=== PATIENT | male | born 1985 | race Caucasian/White ===

== ENCOUNTER 2018-05-21 20:55 | Emergency (ER) | payer MEDICAID ==
[~2018-05-21] VITALS: Ht 170.2 cm; Wt 71.2 kg
[2018-05-21 21:22] VITALS: Ht 170.2 cm; Wt 71.2 kg
[2018-05-21 21:43] LABS: BASOPHIL % 0.5 % (0-2); PLATELET COUNT 304 x10^3mcL (130-400); RED CELL DISTRIBUTION WIDTH 13.5 % (11.5-14.5)
[2018-05-21 22:02] LABS: ALBUMIN 3.6 g/dL (3.4-5.0); ALT/SGPT 52 U/L (16-63); CALCIUM 8.6 mg/dL (8.5-10.1); CARBON DIOXIDE 30.3 mmol/L (21-32); CHLORIDE SERUM 95 mmol/L (98-107); CREATININE SERUM 0.9 mg/dL (0.7-1.3); GFR1 > 60 mL/min; SODIUM SERUM 132 mmol/L (136-145)
[2018-05-21 22:18] LABS: ALKALINE PHOSPHATASE 142 U/L (46-116); AST/SGOT 34 U/L (15-37); BILIRUBIN TOTAL 0.76 mg/dL (0.20-1.00); TOTAL PROTEIN, SERUM 6.8 g/dL (6.4-8.2)
[2018-05-21 22:24] LABS: GLUCOSE SERUM 485 mg/dL (74-106)
[2018-05-21 23:13] LABS: AMPHETAMINE QUAL UR POSITIVE (See below)
[2018-05-22 05:33] VITALS: BP 121/82
== END 2018-05-22 05:33 | disposition short-term general hospital (02) ==
LOC: ED 20:55
PROVIDERS: Emergency Medicine
DX: E10.65 Type 1 diabetes mellitus with hyperglycemia (principal); R45.851 Suicidal ideations; F20.9 Schizophrenia, unspecified
CPT/HCPCS: 82962; G0480; J1815; J7030

== ENCOUNTER 2018-09-25 21:42 | Emergency (ER) | payer OTHER ==
[~2018-09-25] VITALS: Ht 170.2 cm; Wt 71.2 kg
[2018-09-25 21:55] VITALS: Ht 170.2 cm; Wt 71.2 kg
[2018-09-25 22:18] LABS: BASOPHIL % 0.6 % (0-2); PLATELET COUNT 285 x10^3mcL (130-400)
[2018-09-25 22:34] LABS: AMPHETAMINE QUAL UR NONE DETECTED (See below)
[2018-09-25 22:39] LABS: ALBUMIN 3.5 g/dL (3.4-5.0); ALKALINE PHOSPHATASE 162 U/L (46-116); ALT/SGPT 49 U/L (16-63); AST/SGOT 29 U/L (15-37); BILIRUBIN TOTAL 0.4 mg/dL (0.20-1.00); CALCIUM 8.5 mg/dL (8.5-10.1); CARBON DIOXIDE 24.9 mmol/L (21-32); CHLORIDE SERUM 94 mmol/L (98-107); GFR1 > 60 mL/min; LIPASE 115 IU/L (73-393); POTASSIUM SERUM 4.3 mmol/L (3.5-5.1); SODIUM SERUM 131 mmol/L (136-145); TOTAL PROTEIN, SERUM 6.9 g/dL (6.4-8.2)
[2018-09-25 22:48] LABS: GLUCOSE SERUM 573 mg/dL (74-106)
[2018-09-26 03:31] VITALS: BP 101/57
== END 2018-09-26 03:31 | disposition home or self-care (01) ==
LOC: ED 21:42
PROVIDERS: Emergency Medicine
DX: E11.65 Type 2 diabetes mellitus with hyperglycemia (principal); R53.81 Other malaise; E11.9 Type 2 diabetes mellitus without complications
CPT/HCPCS: 82962; J1815; J2765; J7120; Q0162

== ENCOUNTER 2018-10-25 13:47 | Inpatient (IN) | payer OTHER ==
[~2018-10-25] VITALS: Ht 170.2 cm; Wt 71.2 kg
[2018-10-25 13:51] VITALS: Ht 170.2 cm; Wt 71.2 kg
--- NOTE | 2018-10-25 14:05 | NUR ---
PT ASKING TO GO TO [facility]. PT REMINDED HE IS AWAITING MD EVALUATION.
--- NOTE | 2018-10-25 14:34 | NUR ---
PT BROUGHT IN BY [facility] FOR HEARING VOICE. PT WAS PICKED UP IN [facility] AND BROUGHT TO ED. UPON ARRIVAL TO ED PT. HAS STATED MULTIPLE TIMES THAT HE WANTS TO GO TO [facility]. HE STATES THAT THE VOICES ARE TELLING HIM TO RUN INTO TRAFFIC. DENIES THAT THE VOICES ARE TELLING HIM TO HARM OTHERS. PT IS AWAKE AND ALERT. ORIENTED TO SELF AND PLACE. PT PLACED ON CM. MSE COMPLETED BY DR. MARCANO. CURTAINS OPEN FOR PT. SAFETY. SIDERAILS UP X2. PT CURRENTLY CALM AND COOPERATIVE.
[2018-10-25 14:40] LABS: microscopic required? NO
[2018-10-25 14:59] LABS: BASOPHIL % 0.5 % (0-2); PLATELET COUNT 353 x10^3mcL (130-400); RED CELL DISTRIBUTION WIDTH 13.5 % (11.5-14.5)
--- NOTE | 2018-10-25 15:00 | NUR ---
PT GIVEN SANWICH, DIET SPRITE AND CRACKERS. OK BY .
[2018-10-25 15:12] LABS: urine erythrocyte NEGATIVE (NEGATIVE)
[2018-10-25 15:21] LABS: AMPHETAMINE QUAL UR POSITIVE (See below)
[2018-10-25 15:22] LABS: CALCIUM 8.2 mg/dL (8.5-10.1); CARBON DIOXIDE 24.8 mmol/L (21-32); CHLORIDE SERUM 97 mmol/L (98-107); CHOLESTEROL 176 mg/dL (<200); CREATININE SERUM 0.8 mg/dL (0.7-1.3); GFR1 > 60 mL/min; GLUCOSE SERUM 283 mg/dL (74-106); LIPASE 60 IU/L (73-393); SODIUM SERUM 136 mmol/L (136-145)
[2018-10-25 15:23] LABS: HDL CHOLESTEROL 68 mg/dL (40-60)
--- NOTE | 2018-10-25 15:25 | NUR ---
PT CURRENTLY LAYING IN POSITION OF COMFORT. EYES CLOSED. NO DISTRESS.
[2018-10-25 15:27] LABS: ALBUMIN 3.7 g/dL (3.4-5.0); ALKALINE PHOSPHATASE 111 U/L (46-116); ALT/SGPT 49 U/L (16-63); AST/SGOT 101 U/L (15-37); BILIRUBIN TOTAL 1.15 mg/dL (0.20-1.00); TOTAL PROTEIN, SERUM 7.2 g/dL (6.4-8.2)
--- NOTE | 2018-10-25 16:09 | NUR ---
PT SLEEPING. BREATHING EVEN UNLABORED. NO DISTRESS. REMAINS ON CM. CONTINUE TO MONITOR.
--- NOTE | 2018-10-25 16:58 | NUR ---
REPORT GIVEN TO LYDIA
--- NOTE | 2018-10-25 17:18 | NUR ---
PT VOMITED APROX 1L OF STOMACH CONTENTS. PT MEDICATED PER PRN ORDER WITH ZOFRAN 4MG IVP.
[2018-10-25 17:53] VITALS: BP 107/61
--- NOTE | 2018-10-25 17:56 | NUR ---
RECEIVED PT FROM ED VIA KRYSTIAN. ORIETNED PT TO ROOM AND SURROUNDINGS. IV NOTED TO RAC PATENT AND INTACT. INSTRUCTED PT ON THE USE OF CALL LIGHT FOR ASSISTANCE. ENDORSED PT TO PRIMARY NURSE LYDIA
--- NOTE | 2018-10-25 18:56 | NUR ---
NO ACUTE CHANGES AT THIS TIME. WILL ENDORSE TO INCOMING RN.
--- NOTE | 2018-10-25 19:20 | NUR ---
RECIEVED PATIENT AT START OF SHIFT RESTING IN BED, EYES CLOSED, BREATHS REGULAR AND EVEN ON RA. AROUSABLE WITH VERBAL STIMULATION. STATES HE DOESNT HEAR VOICES AT THIS TIME. NO THOUGHTS OF SELF HARM. MED-SURG. IV TO RAC INFUSING WITHOUT ERYTHEMA OR INFILTRATION. SITTER AT BEDSIDE. SUICIDE PRECAUTIONS IN PLACE. BED LOCKED AND IN LOWEST POSIITON. CALL LIGHT AND BEDSIDE TABLE WITHIN REACH.
[2018-10-25 20:00] VITALS: BP 133/84
--- NOTE | 2018-10-25 21:15 | NUR ---
PATIENT IS REPROTING THAT HE CAN HEAR THE VOICES AGAIN, THEY ARE CALLING HIS NAME. HE DENIES THOUGHTS OF SELF HARM. HE REPORTS 5/10 BACK PAIN. MEDICATED WITH TYLENOL PER EMAR.
--- NOTE | 2018-10-26 00:20 | NUR ---
PATIENTS EYES ARE CLOSED, BREATHS EVEN AND REGULAR. NO DISTRESS. IV INFUSING WITHOUT COMPLICATION. SITTER AT BEDSIDE. CALL LIGHT AND BEDSIDE TABLE WITHIN REACH.
[2018-10-26 05:31] VITALS: BP 110/62
--- NOTE | 2018-10-26 06:11 | NUR ---
PATIENT IS AWAKE. HE STATES HE IS STILL HEARING THE VOICES IN HIS HEAD. HE DENIES THOUGHTS OF SELF HARM STILL. SITTER STILL AT BEDSIDE. IV INFUSING WITHOUT ERYTHEMA OR INFILTRATION. BED LOCKED AND IN LOWEST POSITION. CALL LIGHT AND BEDSIDE TABLE WITHIN REACH. WILL ENDORSE CARE TO DAYSHIFT NURSE.
[2018-10-26 06:18] LABS: BASOPHIL % 0.5 % (0-2); PLATELET COUNT 266 x10^3mcL (130-400); RED CELL DISTRIBUTION WIDTH 13.4 % (11.5-14.5)
[2018-10-26 06:20] LABS: CALCIUM 7.7 mg/dL (8.5-10.1); CHLORIDE SERUM 107 mmol/L (98-107); CREATININE SERUM 0.5 mg/dL (0.7-1.3); GFR1 > 60 mL/min; GLUCOSE SERUM 221 mg/dL (74-106); MAGNESIUM 1.8 mg/dL (1.8-2.4); PHOSPHOROUS 3.6 mg/dL (2.5-4.9); POTASSIUM SERUM 3.6 mmol/L (3.5-5.1); SODIUM SERUM 142 mmol/L (136-145)
[2018-10-26 07:30] VITALS: BP 93/62
--- NOTE | 2018-10-26 08:00 | NUR ---
PATIENT RECEIVED SLEEPING BUT ARROUSABLE. SEEMS A LITTLE ANXIOUS BUT DENIES ANY PAIN AT THIS TIME. HE STILL IS HEARING VOICES AND THIS IS A CONTINUED ISSUES. THE VOICES ARE NOT TELLING HIM TO KILL HIMSELF AT THIS TIME. LUNGS ARE CLEAR AND BOWEL SOUND ACTIVE. PATIENT HAS PULSES PALPABLE TO ALL EXTREMITIES. ASKING FOR FOOD BUT THERE IS MINIMAL TO GIVE AND HE HIS DIABETIC WITH AN AIC OF 10.8. SINCE HE IS HERE FOR OOC DIABETES THIS IS AN ISSUE OF GIVING FOODS BETWEEN MEALS. PATIENT GIVEN HIS LANTUS ORDERED AND HIS REGULAR MEDICATIONS. HE HAS VITALS ATT HIS TIME AT 97.5, 74, 16, 93/62, 98% ON ROOM AIR. BP IS LOW BUT PATIENT IS ASYMPTOMATIC AT THIS TIME. NOTED PATIENT HAS HISTORY OF SCHIZOPHRENIA AND BIPOLAR DISORDER AND HAS TESTED ON THIS ADMIT POSITIVE FOR METHAMPHETAMINE. PATIENT HAS A SITTER AT BEDSIDE AND MONITORING FOR ANY SUICIDAL IDEATION OR HEARING OF VOICES TELLING HIM TO HARM HIMSELF. PLAN OF CARE OT SEND TO A PSYCH FACILITY WHEN STABLE. WILL CONTINUE TO MONITOR.
--- NOTE | 2018-10-26 11:05 | NUR ---
REQUESTING MORE FOOD AGAIN AND REMINDED ABOUT HIS AIC AND THE HIGH BLOOD SUGAR HE HAS BEEN HAVING. HE NEEDS TO BE STABLE TO [facility] TO HELP HIM WITH HIS [facility] PROBLEMS. WILL CONTINUE TO MONITOR.
--- NOTE | 2018-10-26 14:38 | NUR ---
PATIENT REMINDED ABOU HIS [facility] DIET AND THE NEED TO FOLLOW THE GUIDELINES FO RBETTER CONTROL OF THE PATIENT GLUCOSE. PATIENT IS REQUESTING FREQUENTLY. WILL REMIND ABOUT THE INDICATIONS AND CONSEQUENCES OF NOT FOLLOWING THE [facility] DIET GUIDELINES.
--- NOTE | 2018-10-26 15:30 | NUR ---
SEEN BY THE PSYCH DOCTOR EARLIER AND PLAN IS FOR TRANSFER TO PSYCH FACILITY WHEN CAN BE ARRANGED AND IS MEDICALLY STABLE TO DO SO. PATIENT STILL HEARS VOICES IN HIS HEAD. HE HAS NOT INDICATED TO THIS STAFF THEY ARE TELLING HIM TO DO HARM TO HIMSELF.
[2018-10-26 17:59] VITALS: BP 115/76
--- NOTE | 2018-10-26 18:28 | NUR ---
WILLOW HAD BLOOD SUGAR AT 244 AND GAVE 6 UNITS OF REGULAR. CONTINUED TO REQUEST FOOD ALMOST CONSTANTLY AND REMINDED OF HIS BLOOD SUGAR LEVELS. WILL CONTINUE TO MONTIOR INDICATED.
--- NOTE | 2018-10-26 19:35 | NUR ---
RECEIVED PT RESTING IN BED, SITTER AT BEDSIDE. PT ON 5150 HOLD FOR THOUGHTS TO HURT SELF (DANGER TO SELF), PT DENIES THOUGHTS TO HURT SELF AT THIS TIME. PT DOES REPORT INTERMITTENT VOICES, DENIES THEM AT THIS CURRENT TIME. MEDSURG PT, DENIES CP. RESP EVEN AND UNLABORED ON RA, DENIES SOB. AND SOFT, ROUND, DENIES N/V/D. PT VOIDS FREELY, UDS (+) METH, PROVIDED EDUCATION ON CONTINUING MEDICATION FOR BIPOLAR/SCHIZO, WELL INSULIN REGIME FOR OOC DM. PT VERBALIZES UNDERSTANDING, WANTING TO BE TRANSFERRED TO [facility]. GENERALIZED WEAKNESS, SKIN INTACT. PT DENIES PAIN AT THIS TIME. IV SITE TO THE [facility] PATENT, NS @ 100ML/HR. NO REDNESS, SWELLING OR PAIN NOTED. ALL COMFORT AND SAFETY MEASURES PROVIDED FOR, CALL LIGHT WITHIN REACH, BED IN LOWEST POSITION, WILL CONTINUE TO MONITOR.
[2018-10-26 20:07] VITALS: BP 101/62
--- NOTE | 2018-10-27 05:10 | NUR ---
PT RESTED IN INTERVALS DURING SHIFT, NO ACUTE CHNAGES OCCURRING OVERNIGHT. PT REQUEST FOOD SEVERAL TIMES DURING SHIFT, EDUCATED PT IN REGARDS TO OBEYING CCHO DIET, PT CALM AND COOPERATIVE, PROVIDED SUGAR FREE SNACKS OCCASIONALLY DURING SHIFT, PT TOLERATING DIET FAIRLY WELL. PT DENIES THOUGHTS TO HURT SELF OR OTHERS DURING SHIFT, SITTER REMAINING AT BEDSIDE FOR 5150 HOLD. ALL COMFORT AND SAFETY MEASURES PROVIDED FOR, CALL LIGHT WITHIN REACH, BED IN LOWEST POSITION, WILL CONTINUE TO MONITOR.
[2018-10-27 05:55] VITALS: BP 100/65
[2018-10-27 06:51] LABS: CALCIUM 7.9 mg/dL (8.5-10.1); CARBON DIOXIDE 29.6 mmol/L (21-32); CHLORIDE SERUM 109 mmol/L (98-107); CREATININE SERUM 0.5 mg/dL (0.7-1.3); GFR1 > 60 mL/min; GLUCOSE SERUM 210 mg/dL (74-106); MAGNESIUM 1.7 mg/dL (1.8-2.4); PHOSPHOROUS 4.1 mg/dL (2.5-4.9); POTASSIUM SERUM 3.7 mmol/L (3.5-5.1); SODIUM SERUM 143 mmol/L (136-145)
[2018-10-27 07:04] LABS: BASOPHIL % 0.4 % (0-2); PLATELET COUNT 284 x10^3mcL (130-400); RED CELL DISTRIBUTION WIDTH 13.6 % (11.5-14.5)
--- NOTE | 2018-10-27 07:32 | NUR ---
ENDORSED ALL CARE TO DAYSHIFT NURSE, NO ACUTE DISTRESS NOTED. ALL COMFORT AND SAFETY MEASURES PROVIDED FOR, ALL QUESTIONS AND CONCERNS ADDRESSED. SITTER AT BEDSIDE. CALL LIGHT WITHIN REACH, BED IN LOWST POSITION.
--- NOTE | 2018-10-27 08:00 | NUR ---
PATIENT RECEIVED SLEEPING AND SEEMS WITHOUT DISTRESS AT THIS TIME. NOTED THE BLOOD SUGAR WAS AT 313 AND COVERAGE GIVEN. NOTED PATIENT HAS BEEN NON COMPLIANT WITH THE DIET AND DESPITE STAFF ATTEMPTS TO CONTROL HE HAS MANAGED TO GET EXTRA FOOD AND DRINKS. PATIENT HAS CLEAR BREATH SOUND AND CONTINUED ON GEODONE ORDERED AND STAFF CANT REALLY TELL IF IT HAS HAD ANY AFFECT ON THE PATIENT HIS ISSUES ARE NOT VISABLE. HE DOES THOUGH DENY ANY SUICIDAL THOUGHTS OR VOICES TELLING HIM TO HURT HIMSELF. PATIENT HAS PAPLABLE PULSES AND SKIN IS WARM AND DRY TO THE TOUGH. PATIENT TOLERATED OOB AND GAIT IS STEADY. LUNGS ARE CLEAR AND PATIENT HAS NO SIGNS OF HYPO OR HYPERGLYCEMIA. CONTINUED ON LANTUS ORDERED. VITALS AT THIS TIME AT 98.6, 18, 65, 100/65, 96% ON ROOM AIR. NOTED LABS ARE THE MAGNESIUM AT 107, AND THE CHLORIDE AT 109. PATIENT HAS A SITTER AT BESIDE. AND MONITORING FOR ANY SELF HARM. HX OF SCHIZOPHRENIA AND BIPOLAR NOTED.
[2018-10-27 08:21] VITALS: BP 97/61
--- NOTE | 2018-10-27 08:58 | NUR ---
PATIENT ASKED IF HE MAY BE GETTING TO GO HOME. ADVISED THAT THE PATIENT WILL NEED TO BE SEEN BY THE PSYCH DOCTOR AND EVALUATED FOR HIS IDEATION THEY WANT TO BE SAFE AND HE HAS BEEN HEARING VOICES TO GET HIM TO HARM HIMSELF. ADVISED TOO THAT THE MEDICATION WE HOPE GAY HELP THE PATIENT SEEN THINGS IN A DIFFERENT LIGHT AND THIS IS TO BE EVALUATED BY THE DOCTOR WELL. THE PATEINT STILL PRESENTS HIMSELF WITH A FLAT AFFECT AND NO EYE CONTACT. WILL CONTINUED TO MONITOR INDICATED.
--- NOTE | 2018-10-27 10:25 | NUR ---
CONTINUED ON FLUIDS ORDERED AND SITTER AT BEDSIDE AND PATIENT IS CALM AT THIS TIME.
--- NOTE | 2018-10-27 10:47 | NUR ---
PATIENT WANTS TO GO HOME.ADVISED BC DID THIS AM THAT THE PATEIT WILL NEED TO BE SEEN BY THE PSYCH DOCTOR FOR DISCHARGE OK. PATIENT IS VERY ANXIOUS AT THIS TIME AND WANTS TO LEAVE. REMINDED AGAIN TO THE PATIENT AND WHY HE IS HERE AND THE ISSUES OF HEARING VOICES TELLING HIM TO HURT HIMSELF. HE IS UP TO A CHAIR AND SITTER REMAINS AT THE BEDSIDE. MONITORING.
--- NOTE | 2018-10-27 17:00 | NUR ---
BLOOD SUGAR DUE TO RESTRICTION OF HIS DIET AT NOW 126 AND NO COVERAGE WAS INDICATED. PATIENT HAS BEEN CALLING THE HOSPITAL AND ASKING FOR THE PSYCH DOCTOR HE IS NOTED TO BE 5150 AND WAS EVALED YESTERDAY. PATIENT HAS BEEN NON COMPLIANT WITH HIS DIET AND REQUESTING FOOD ALMOST CONSTANTLY THROUGHOUT THE SHIFT. WENT OVER AGAIN WITH THE PATIENT ABOUT DIABETES AND THE EFFECTS OF UNCONTROL DIABETES TO THE HEART, SKIN AND KIDNEYS AND EYES. PATIENT DOES NOT SEEM TO BE ABLE TO FOCUS AND WANTS TO GET OUT OF THE HOSPITAL. THIS IS WHY THE CALLS AND CONSTANT QUESTIONING ABOUT WHEN THE DOCTOR WILL GET HERE.
[2018-10-27 17:32] VITALS: BP 116/86
--- NOTE | 2018-10-27 19:00 | NUR ---
PATIENT CONTINUES TO REQUEST FOR FOOD AND DRINK THE LAST BLOOD SUGAR AT 126 AND HE DID NOT GET ALL THE REQUESTS HE HAS BEEN GETTING FROM VARIOUS STAFF. THE PRIMARY NURSE REMINDED THE SITTER AND ALL THE STAFF NOTTO FEED THE PATIENT ANY MORE CRACKERS AND EXTRA FOOD. THE SUGAR IS MUCH IMPROVED AT THIS TIME NO SIGNS OF HYPOGLYCEMIA NOTED.
--- NOTE | 2018-10-27 19:30 | NUR ---
RECEIVED PT RESTING IN BED, SITTER AT BEDSIDE. PT ON 5150 HOLD FOR THOUGHTS TO HURT SELF (DANGER TO SELF), PT DENIES THOUGHTS TO HURT SELF AT THIS TIME. PT DOES REPORT INTERMITTENT VOICES, DENIES THEM AT THIS CURRENT TIME. MEDSURG PT, DENIES CP. RESP EVEN AND UNLABORED ON RA, DENIES SOB. AND SOFT, ROUND, DENIES N/V/D. PT VOIDS FREELY, UDS (+) METH, PROVIDED EDUCATION ON CONTINUING MEDICATION FOR BIPOLAR/SCHIZO, WELL INSULIN REGIME FOR OOC DM. PT VERBALIZES UNDERSTANDING, REQUESTING MANY THINGS SUCH GETTING DISCONNECTED FROM IV, GETTING FOOD AND ASKING THE SAME QUESTION MULTIPLE TIMES. GENERALIZED WEAKNESS, SKIN INTACT. PT DENIES PAIN AT THIS TIME. IV SITE TO THE [facility] PATENT, NS @ 100ML/HR. NO REDNESS, SWELLING OR PAIN NOTED. ALL COMFORT AND SAFETY MEASURES PROVIDED FOR, CALL LIGHT WITHIN REACH, BED IN LOWEST POSITION, WILL CONTINUE TO MONITOR.
[2018-10-27 20:01] VITALS: BP 128/82
[2018-10-28 05:20] VITALS: BP 116/71
--- NOTE | 2018-10-28 05:20 | NUR ---
PT RESTED IN INTERVALS DURING SHIFT, REQUESTING FOOD SEVERAL TIMES DURING SHIFT. PT ONLY GIVEN 1 SANDWICH AFTER ACCUCHECK IN EVENING AND 1 SANWHICH THIS MORINING, PT CURRENTLY REQUESTING SOME CRACKERS, PT BLOOD SUGAR LAST NIGHT = 223, GAVE 6 UNITS, THIS MORNING= 196, WILL GIVE INSULIN PER SLIDING SCALE, PT REMAINS CALM AND COOPERATIVE WITH CARE AT THIS TIME, CALL LIGHT WITHIN REACH, BED IN LOWEST POSITION, WILL CONTINUE TO MONITOR.
[2018-10-28 06:30] LABS: CALCIUM 8.1 mg/dL (8.5-10.1); CHLORIDE SERUM 106 mmol/L (98-107); CREATININE SERUM 0.5 mg/dL (0.7-1.3); GFR1 > 60 mL/min; GLUCOSE SERUM 190 mg/dL (74-106); POTASSIUM SERUM 3.5 mmol/L (3.5-5.1); SODIUM SERUM 141 mmol/L (136-145)
[2018-10-28 07:22] LABS: BASOPHIL % 0.5 % (0-2); PLATELET COUNT 317 x10^3mcL (130-400); RED CELL DISTRIBUTION WIDTH 13.3 % (11.5-14.5)
--- NOTE | 2018-10-28 08:00 | NUR ---
ASKING AGAIN ABOUT THE PSYCH DOCTOR AND ASKING ABOUT FOOD AND WHEN WILL THE DOCTOR COME AND HE WANTS TO GO HOME. PATIENT HAS BEEN TOLD OVER AND OVER THROUGHOUT YESTERDAY AND TODAY BUT KEEPS ASKING AGAIN AND AGAIN. SITTER AT BEDSIDE AND PATIENT IS A 5150 DUE TO HEARING VOICES AND THEY TELL HIM TO HURT HIMSELF.
--- NOTE | 2018-10-28 08:00 | NUR ---
BLOOD SUGAR AT THIS TIME AT 270 AND GAVE INSULIN COVERAGE. STILL REQUESTING FOOD AND IS GETTING FROM STAFF DESPITE THE CONSTANT ADVISING THAT HE IS NTO TO EAT DURING THE INBETWEEN TIMES AND THE AIC AND BLOOD SUGAR LEVEL ARE VERY ELEVATED. STAFF HAS REMINDED SEVERAL TIMES BUT THE REMNANT OF FOOD NOTED AT BEDSIDE. IV INTACT AND CONTINUED ON FLUIDS ORDERED. PATIENT IS AMBULATORY OOB TOLERATED. ASKING ABOUT GOING HOME AND HE IS A 5150 AND REMINDED HIM OF THIS QUITE FREQUENTLY AND ALSO THE DIET RESTRICTIONS. LUNGS ARE CLEAR AND BOWEL SUONDS ACTIVE. NO EDMEA NOTED.
[2018-10-28 09:05] VITALS: BP 121/88
--- NOTE | 2018-10-28 13:00 | NUR ---
NEEDED INSULIN COVERAGE AT LUNCH AND REMINDED HIM ABOUT THE USE OF INBETEEN MEAL SNACKS. HE IS CONSUMING TOO MUCH CARBOHYDRATES CAUSING HIS GLUCOSE LEVLES TO BE CONTINUOUSLY HIGH. WILL CONTINUE EDUCATION. HE IS REQUESTING TO GO HOME AND HE WANTS MORE FOOD AND THIS HAS NOT CHANGED SINCE AND DISPITE EDUCATING HIM EACH AND EVERY TIME HE REQUESTS. HE MANAGED TO REQUEST FOOD FROM STAFF AND EVEN VISITORS. HE HAS A EMPTY SANDWICH CONTAINER AND SEVERAL WRAPPERS FROM CRACKERS ON HIS TABLE HIS AM.
[2018-10-28 17:04] VITALS: BP 134/95
--- NOTE | 2018-10-28 17:30 | NUR ---
BLOOD SUGAR WAS 167 AND GAVE PATIENT DIABETIC EDUCATION AND ENCOURAGE COMPLIANCE AND ADVISED IN ORDER TO GO HOME HE NEEDS TO BE MEDICALLY STABLE. PASSED THIS ON TO THE STAFF AT BESIDE AND THE RN TAKING OVER.
--- NOTE | 2018-10-28 19:18 | NUR ---
OOB AND AGITATED AND WALKING BACK AND FORTH THE HALLWAY. LEO HAS BEEN WANTING IV REMOVED AND REMINDED HIM OF THE INDICATION FOR FLUIDS. THERE IS SOME CONCERN HE MAY TRY TO GET OUT OF THE HOSPITAL TOO IF HE IS NOT CLOSELY MONITORED. WILL CONTINUE TO MONITOR.
--- NOTE | 2018-10-28 19:30 | NUR ---
RECIEVED PT RESTING IN BED WITH SITTER AT BEDSIDE. ASSESSMENT PERFORMED AT THIS TIME, PT IS A/OX4, NO COMPLAINTS OF FISHMAN OR DIZZINESS, PT REPEATEDLY REQUESTING SANFWHICHES AND PUDDINGS, EDUCATED PT ON REASONS FOR LOW SUGAR FOOD AND HE REQUESTED A SUGAR FREE JELLO INSTEAD WHICH WAS PROVIDED, PT DENIES PAIN OR SOB AT THIS TIME, SAFETY PRECAUTIONS IN PLACE, ALL NEEDS ATTENDED TO WILL CONTINUE TO MONITOR
--- NOTE | 2018-10-28 22:10 | NUR ---
PT RESTING IN BED REQUESTING JELLO, ALL NEEDS ATTENDED TO, SITTER AT BEDSIDE, SAFETY PRECAUTIONS IN PLACE, WILL CONTINUE TO MONITOR
--- NOTE | 2018-10-29 00:20 | NUR ---
PT PULLED IV OUT, CLEANED UP PATIENT AND CHANGED LINENS, REPLACED WITH NEW IV TO THE RFA 22 GAUGE
--- NOTE | 2018-10-29 02:52 | NUR ---
PT RESTING COMFORTABLY WITH NO SIGNS OF ACUTE DISRESS, NO SIGNS OF PAIN OR SOB, RESPIRATIONS EVEN AND UNLABORED SAFETY PRECAUTIONS IN PLACE, WILL CONTINUE TO MONITOR
--- NOTE | 2018-10-29 05:31 | NUR ---
PT RESTED IN BED THROUGH EVENING WITH SITTER AT BEDSIDE, PT PULLED IV OUT AND NEW ONE WAS RESTARTED, PT REQUESTED FOOD THROUGH SHIFT AND WAS EDUCATED ABOUT LIFESTYLE MODIFICATIONS, PT DENIED PAIN OR SOB THROUGH THE NIGHT, ALL NEEDS WERE ATTENDED TO WILL CONTINUE TO MONITOR AND ENDORSE CARE
[2018-10-29 05:55] VITALS: BP 97/57
[2018-10-29 06:33] LABS: BASOPHIL % 0.5 % (0-2); PLATELET COUNT 336 x10^3mcL (130-400); RED CELL DISTRIBUTION WIDTH 13.3 % (11.5-14.5)
[2018-10-29 06:54] LABS: CALCIUM 8.4 mg/dL (8.5-10.1); CARBON DIOXIDE 27.6 mmol/L (21-32); CHLORIDE SERUM 108 mmol/L (98-107); CREATININE SERUM 0.5 mg/dL (0.7-1.3); GFR1 > 60 mL/min; GLUCOSE SERUM 130 mg/dL (74-106); POTASSIUM SERUM 3.7 mmol/L (3.5-5.1); SODIUM SERUM 143 mmol/L (136-145)
--- NOTE | 2018-10-29 08:00 | NUR ---
ALERT AND ORIENTED. BREATHING FREELY ON RA. DENIES ANY PAIN. MOVES ALL EXTREMITIES FREELY. BRP. INDEPENDENT W ADL'S. GOOD APPETITE WITH BREAKFAST. VSS. NS INFUSING 100 CC HOUR TO RT FA. NO TELE. REORIENTED TO CALL LIGHT. CALL LIGHT WITHIN REACH.
[2018-10-29 08:35] VITALS: BP 129/78
--- NOTE | 2018-10-29 11:53 | NUR ---
PT WANTED TO SHOWER. PER CIRILO COOLEY PT DOES NOT NEED ORDER FOR SHOWER. GAVE PT SUPPLIES.
[2018-10-29 13:00] VITALS: BP 129/78
--- NOTE | 2018-10-29 13:32 | NUR ---
DC'D TO HOME. IV TO RT FA DC'D. NO TELE. NO PRESCRIPTIONS GIVEN. F/U JUDY GIVEN. ALL DC INSTRUCTIONS REVIEWED WITH AND SIGNED BY PT. PT SAID HE HAD BUS PASS TO GET HIM HOME.
== END 2018-10-29 13:30 | disposition home or self-care (01) | DRG 750 ==
LOC: ED 13:47 → MU 16:17
PROVIDERS: Emergency Medicine; ADMIT Internal Medicine
DX: F25.0 Schizoaffective disorder, bipolar type (principal); N17.0 Acute kidney failure with tubular necrosis; E87.8 Other disorders of electrolyte and fluid balance, not elsewhere classified; E10.65 Type 1 diabetes mellitus with hyperglycemia; E83.51 Hypocalcemia; F15.20 Other stimulant dependence, uncomplicated; R45.851 Suicidal ideations; E86.0 Dehydration; R74.0 Nonspecific elevation of levels of transaminase and lactic acid dehydrogenase [LDH]; Z91.14 Patient's other noncompliance with medication regimen; Z59.0 Homelessness; T43.596A Underdosing of other antipsychotics and neuroleptics, initial encounter; T38.3X6A Underdosing of insulin and oral hypoglycemic [antidiabetic] drugs, initial encounter; F10.129 Alcohol abuse with intoxication, unspecified; Z68.22 Body mass index [BMI] 22.0-22.9, adult; Z79.4 Long term (current) use of insulin; Y90.6 Blood alcohol level of 120-199 mg/100 ml; Y92.89 Other specified places as the place of occurrence of the external cause
CPT/HCPCS: 82962; G0378; G0480; J1815; J2405; J7030; Q0092

== ENCOUNTER 2019-03-17 19:01 | Emergency (ER) | payer SELFPAY ==
[~2019-03-17] VITALS: Ht 167.6 cm; Wt 62.6 kg
[2019-03-17 19:28] VITALS: Ht 167.6 cm; Wt 62.6 kg
[2019-03-17 20:54] LABS: CALCIUM 9.1 mg/dL (8.5-10.1); CARBON DIOXIDE 27.6 mmol/L (21-32); CHLORIDE SERUM 95 mmol/L (98-107); CREATININE SERUM 1.1 mg/dL (0.7-1.3); GFR1 > 60 mL/min; GLUCOSE SERUM 163 mg/dL (74-106); SODIUM SERUM 137 mmol/L (136-145)
[2019-03-17 20:58] LABS: ALBUMIN 4.2 g/dL (3.4-5.0); ALKALINE PHOSPHATASE 135 U/L (46-116); ALT/SGPT 27 U/L (16-63); AST/SGOT 18 U/L (15-37); BILIRUBIN TOTAL 1.13 mg/dL (0.20-1.00); TOTAL PROTEIN, SERUM 8.2 g/dL (6.4-8.2)
[2019-03-17 20:59] LABS: BASOPHIL % 0.2 % (0-2); RED CELL DISTRIBUTION WIDTH 12.9 % (11.5-14.5)
[2019-03-17 21:00] LABS: PLATELET COUNT 478 x10^3mcL (130-400)
[2019-03-17 23:26] VITALS: BP 129/68
== END 2019-03-17 23:26 | disposition home or self-care (01) ==
LOC: ED 19:01
PROVIDERS: Student in an Organized Health Care Education/Training Program
DX: E11.65 Type 2 diabetes mellitus with hyperglycemia (principal); F20.9 Schizophrenia, unspecified
CPT/HCPCS: 36415; 82962